=== PATIENT | male | born 1960 | race Hispanic/Latino ===

== ENCOUNTER 2016-09-26 11:50 | Inpatient (IN) | payer OTHER ==
--- NOTE | 2016-09-26 12:18 | ED PDOC ---
HPI: Hypertension/Hypotension Time Seen by Provider: 09/26/16 12:05 Chief Complaint (Nursing): Palpitations History Per: Patient History/Exam Limitations: no limitations Onset/Duration Of Symptoms: Gradual (last night), Worse Since (this am) Current Symptoms Are (Timing): Still Present Associated Symptoms: denies: Chest Pain, Dyspnea, Dizziness, Blurred Vision, Focal Weakness, Headache Quality Of Symptoms: Rapid Heart Rate, Irregular Heart Rate Severity: Moderate Exacerbating Factor(s): Pos: None Additional History Per: Patient Additional Complaint(s): pt states he was watching TV when he felt palpitations. no c/o chest pain or sob. h/o of dialysis. nothing makes it better or worse Past Medical History Reviewed: Historical Data, Nursing Documentation, Vital Signs Vital Signs: Last Vital Signs Temp Pulse Resp BP Pulse Ox 98 09/26/16 12:10 - Medical History PMH: HTN - Family History Family History: States: Unknown Family Hx - Living Arrangements Living Arrangements: With Family - Social History Current smoker - smoking cessation education provided: No Alcohol: None Drugs: Denies - Home Medications Home Medications: Ambulatory Orders Medication Instructions Recorded Esomeprazole Magnesium [Nexium] 20 mg PO DAILY 09/26/16 Metoprolol Succinate 50 mg PO DAILY 09/26/16 - Allergies Allergies/Adverse Reactions: Allergies Allergy/AdvReac Type Severity Reaction Status Date / Time No Known Allergies Allergy Verified 09/26/16 12:09 Review of Systems ROS Statement: Except As Marked, All Systems Reviewed And Found Negative Constitutional: Negative for: Fever, Chills Cardiovascular: Positive for: Palpitations. Negative for: Chest Pain, Edema, Light Headedness Respiratory: Negative for: Cough, Shortness of Breath Gastrointestinal: Negative for: Nausea, Vomiting, Abdominal Pain Neurological: Negative for: Weakness, Numbness, Altered Mental Status, Headache Physical Exam - Reviewed Nursing Documentation Reviewed: Yes Vital Signs Reviewed: Yes - Physical Exam Appears: Positive for: Well, In Acute Distress (mild) Eye Exam: Positive for: Normal appearance, EOMI, PERRL. Negative for: Periorbital swelling, Periorbital tenderness Neck: Positive for: Normal, Painless ROM, Supple. Negative for: Decreased ROM, Limited ROM, Trachea Midline Cardiovascular/Chest: Positive for: Chest Non Tender, Tachycardia, Irregularly Irregular. Negative for: Edema, Gallop, Murmur, Bradycardia, Ectopy, Friction Rub Respiratory: Positive for: Normal Breath Sounds. Negative for: Decreased Breath Sounds, Accessory Muscle Use, Crackles, Rales, Rhonchi, Wheezing Pulses-Radial (L): 2+ Pulses-Radial (R): 2+ Gastrointestinal/Abdominal: Positive for: Normal Exam, Bowel Sounds, Soft. Negative for: Tenderness Back: Positive for: Normal Inspection. Negative for: L CVA Tenderness, R CVA Tenderness Extremity: Positive for: Normal ROM. Negative for: Tenderness, Pedal Edema, Calf Tenderness, Capillary Refill, Deformity, Swelling Neurologic/Psych: Positive for: Alert, set up mechanic II-XII, Oriented, Gait (steady). Negative for: Motor/Sensory Deficits - Laboratory Results Result Diagrams: 09/26/16 12:15 09/26/16 12:15 - ECG ECG: Positive for: Interpreted By Me ECG Rhythm: Positive for: Normal QRS, Normal ST Segment, Atrial Fibrillation. Negative for: ST/T Changes Interpretation Of Abn EKG: afib with rvr, rate 126 O2 Sat by Pulse Oximetry: 98 Pulse Ox Interpretation: Normal - Radiology X-Ray: Interpreted by Ar X-Ray Interpretation: Other (mild pvc nml cardiac and mediasintum silhouette ) - Progress ED Course And Treament: sx improved with cardizem gtt will admit to tele for new onset atrial flutter Re-evaluation Time: 12:49 Condition: Improved Disposition - Clinical Impression Clinical Impression: Atrial flutter with rapid ventricular response - Patient ED Disposition Is Patient to be Admitted: Yes Counseled Patient/Family Regarding: Studies Performed, Diagnosis - Disposition Disposition Time: 15:20 Condition: STABLE - Pt Status Changed To: Hospital Disposition Of: Inpatient - Admit Certification Admit to Inpatient:: After my assessment, the patient will require hospitalization for at least two midnights. This is because of the severity of symptoms shown, intensity of services needed, and/or the medical risk in this patient being treated as an outpatient. - POA Present On Arrival: None
[2016-09-26 12:22] LABS: BASO # 0.1 K/uL (0.0-0.2); BASO % 0.9 % (0.0-2.0); EOS # 0.4 K/uL (0.0-0.7); HEMATOCRIT 48.1 % (35.0-51.0); LYMPH # 3.2 K/uL (1.0-4.3); LYMPH % 31.8 % (20.0-40.0); MEAN CELL VOLUME 88.8 fl (80.0-94.0); MEAN CORPUSCULAR HEMOGLOBIN 29.8 pg (27.0-31.0); MEAN CORPUSCULAR HGB CONC 33.6 g/dL (33.0-37.0); MONO # 1.1 K/uL (0.0-0.8); MONO % 11.3 % (0.0-10.0); NEUT # 5.2 K/uL (1.8-7.0); RED CELL DISTRIBUTION WIDTH 13.2 % (11.5-14.5)
[2016-09-26 12:32] LABS: ALB/GLOB RATIO 1.1 (1.0-2.1); ALKALINE PHOSPHATASE 95 U/L (38-126); ALT/SGPT 27 U/L (21-72); AST/SGOT 31 U/L (17-59); BILIRUBIN,TOTAL 0.5 mg/dl (0.2-1.3); BLOOD UREA NITROGEN 18 mg/dl (9-20); CALCIUM 9.2 mg/dL (8.4-10.2); CARBON DIOXIDE 24 mmol/L (22-30); CHLORIDE 109 mmol/L (98-107); GFR AFRICAN-AMERICAN > 60; GLUCOSE,RANDOM 153 mg/dL (75-110); POTASSIUM 4.4 MMOL/L (3.6-5.0); SODIUM 147 mmol/l (132-148); TOTAL PROTEIN 7.5 G/DL (6.3-8.2)
[2016-09-26 12:37] LABS: RBC URINE < 1 /hpf (0-3); URINE BILIRUBIN NEGATIVE (NEGATIVE); URINE BLOOD NEGATIVE (NEGATIVE); URINE COLOR STRAW (YELLOW); URINE GLUCOSE (UA) NEG (Normal); URINE KETONE NEGATIVE (NEGATIVE); URINE LEUKOCYTE ESTERASE NEG Leu/uL (Negative); URINE PROTEIN 30 mg/dL (NEGATIVE); URINE UROBILINOGEN 0.2-1.0 mg/dL (0.2-1.0); WBC URINE < 1 /hpf (0-5)
--- NOTE | 2016-09-26 15:54 | RAD ---
PROCEDURE: CHEST RADIOGRAPH, 1 VIEW HISTORY: palp COMPARISON: None available. FINDINGS: LUNGS: Clear. PLEURA: No pneumothorax or pleural fluid seen. CARDIOVASCULAR: Pulmonary vascular congestion is noted. OSSEOUS STRUCTURES: No significant abnormalities. VISUALIZED UPPER ABDOMEN: Normal. OTHER FINDINGS: None. IMPRESSION: No infiltrate. Pulmonary vascular congestive changes noted.
[2016-09-26 20:20] VITALS: BMI 39.1
[2016-09-26] MEDS: Enoxaparin 100 mg Syringe SC SCH (21:20)
--- NOTE | 2016-09-27 08:11 | CP.PCM.CON ---
History of Present Illness - History of Present Illness History of Present Illness: I was asked to see patient by Dr. Salinas. Patient is a 56 year old male with PMH HTN, previous renal insufficiency, who presents with palpitations. The patient was at home when he noted the onset of rapid heart rate. The patient felt assocaited dyspnea. Symptoms occurred while at rest. He presented to [facility] and was found to be in atrial fibrillation with rapid ventricular response. The patient was placed on telemetry. Overnight he converted to sinus rhythm. The patient is currently asymptomatic. Review of Systems - Constitutional Constitutional: absent: As Per HPI, Anorexia, Chills, Daytime Sleepiness, Excessive Sweating, Fatigue, Fever, Frequent Falls, Headache, Increased Appetite , Lethargy, Malaise, Night Sweats, Snoring, Sleep Apnea, Weight Gain, Weight Loss, Weakness, Other - EENT Eyes: absent: As Per HPI, Blind Spots, Blurred Vision, Change in Vision, Decreased Night Vision, Diplopia, Discharge, Dry Eye, Exophthalmos, Floaters, Irritation, Itchy Eyes, Loss of Peripheral Vision, Pain, Photophobia, Requires Corrective Lenses, Sees Flashes, Spots in Vision, Tunnel Vision, Other Visual Disturbances, Loss of Vision, Other Ears: absent: As Per HPI, Decreased Hearing, Ear Discharge, Ear Pain, Tinnitus, Abnormal Hearing, Disequilibrium, Dizziness, Other Nose/Mouth/Throat: absent: As Per HPI, Epistaxis, Nasal Congestion, Nasal Discharge, Nasal Obstruction, Nasal Trauma, Nose Pain, Post Nasal Drip, Sinus Pain, Sinus Pressure, Bleeding Gums, Change in Voice, Dental Pain, Dry Mouth, Dysphagia, Halitosis, Hoarsness, Lip Swelling, Mouth Lesions, Mouth Pain, Odynophagia, Sore Throat, Throat Swelling, Tongue Swelling, Facial Pain, Neck Pain, Neck Mass, Other - Cardiovascular Cardiovascular: Dyspnea, Rapid Heart Rate - Respiratory Respiratory: absent: As Per HPI, Cough, Dyspnea, Hemoptysis, Dyspnea on Exertion , Wheezing, Snoring, Stridor, Pain on Inspiration, Chest Congestion, Excessive Mucous Production, Change in Mucous Color, Pain with Coughing, Other - Gastrointestinal Gastrointestinal: absent: As Per HPI, Abdominal Pain, Belching, Bloating, Change in Bowel Habits, Change in Stool Character, Coffee Ground Emesis, Constipation, Cramping, Diarrhea, Dyspepsia, Dysphagia, Early Satiety, Excessive Flatus, Fecal Incontinence, Heartburn, Hematemesis, Hematochezia, Loose Stools, Melena, Nausea, Odynophagia, Temesmus, Vomiting, Other - Genitourinary Genitourinary: absent: As Per HPI, Change in Urinary Stream, Difficulty Urinating, Dysuria, Flank Pain, Hematuria, Pyuria, Nocturia, Urinary Incontinence, Urinary Frequency, Urinary Hesitance, Urinary Urgency, Voiding Freq/Small Amts, Freq UTI, Hx Renal/Bladder Calculi, Hx /Renal Surgery, Bladder Distension, Other - Musculoskeletal Musculoskeletal: absent: As Per HPI, Abnormal Gait, Arthralgias, Atrophy, Back Pain, Deformity, Joint Swelling, Limited Range of Motion, Loss of Height, Muscle Cramps, Muscle Weakness, Myalgias, Neck Pain, Numbness, Radiating Pain into Limb, Stiffness, Tingling, Other - Integumentary Integumentary: absent: As Per HPI, Acne, Alopecia, Bleeding Lesions, Change in Hair, Change in Nails, Change in Pigmentation, Changing Lesions, Dry Skin, Erythema, Furuncle, Hirsutism, Lesions, New Lesions, Non-Healing Lesions, Photosensitivity, Pruritus, Rash, Skin Pain, Skin Ulcer, Sores, Striae, Swelling , Unusual Bruising, Wounds, Jaundice, Other - Neurological Neurological: absent: As Per HPI, Abnormal Gait, Abnormal Hearing, Abnormal Movements, Abnormal Speech, Behavioral Changes, Burning Sensations, Confusion, Convulsions, Disequilibrium, Dizziness, Numbness, Focal Weakness, Frequent Falls , Headaches, Lack of Coordination, Loss of Vision, Memory Loss, Paresthesias, Radicular Pain, Restless Legs, Sensory Deficit, Syncope, Tingling, Tremor, Vertigo, Weakness, Other Visual Disturbances, Other - Psychiatric Psychiatric: absent: As Per HPI, Abnormal Sleep Pattern, Anhedonia, Anxiety, Auditory Hallucinations, Behavioral Changes, Change in Appetite, Change in Libido, Confusion, Depression, Difficulty Concentrating, Hallucinations, Homicidal Ideation, Hopelessness, Irritability, Memory Loss, Mood Swings, Panic Attacks, Paranoia, Suicidal Ideation, Visual Hallucinations, Tactile Hallucinations, Other - Endocrine Endocrine: absent: As Per HPI, Change in Body Appearance, Change in Libido, Cold Intolorance, Deepening of Voice, Excessive Sweating, Fatigue, Flushing, Heat Intolorance, Increase in Ring/Shoe/Hat Size, Palpitations, Polydipsia, Polyphagia, Polyuria, Other - Hematologic/Lymphatic Hematologic: absent: As Per HPI, Easy Bleeding, Easy Bruising, Lymphadenopathy, Other Past Patient History - Past Social History Smoking Status: Never Smoked - CARDIAC Hx Hypertension: Yes - RENAL Hx Chronic Kidney Disease: Yes Hx Dialysis: Yes Hx Kidney Stones: Yes - HEMATOLOGICAL/ONCOLOGICAL Hx AIDS: No Hx Human Immunodeficiency Virus (HIV): No - MUSCULOSKELETAL/RHEUMATOLOGICAL Hx Falls: No - PSYCHIATRIC Hx Substance Use: No - SURGICAL HISTORY Hx Herniorrhaphy: Yes Other/Comment: Left ankle fracture. Plate to left arm - ANESTHESIA Hx Anesthesia: Yes Hx Anesthesia Reactions: No Has any member of the family had a problem w/ anesthesia?: No Meds Allergies/Adverse Reactions: Allergies Allergy/AdvReac Type Severity Reaction Status Date / Time No Known Allergies Allergy Verified 09/26/16 12:09 - Medications Medications: Current Medications Enoxaparin Sodium (Lovenox) 100 mg SC Q12 CHIKA PRN Reason: Protocol Last Admin: 09/26/16 21:20 Dose: 100 mg Diltiazem HCl 125 mg/ Sodium (Chloride) 125 mls @ 5 mls/hr IV .Q24H ONE; 5 MG/ HR PRN Reason: Protocol Stop: 09/27/16 12:10 Last Titration: 09/26/16 15:31 Dose: 2.5 mg/hr Metoprolol Succinate (Toprol Xl) 50 mg PO DAILY [facility] Pantoprazole Sodium (Protonix Ec Tab) 20 mg PO DAILY [facility] Physical Exam - Constitutional Appears: Non-toxic - Head Exam Head Exam: NORMAL INSPECTION - Eye Exam Eye Exam: Normal appearance - ENT Exam ENT Exam: Mucous Membranes Moist - Neck Exam Neck exam: Positive for: Full Rom - Respiratory Exam Respiratory Exam: Decreased Breath Sounds - Cardiovascular Exam Cardiovascular Exam: Irregular Rhythm - GI/Abdominal Exam GI & Abdominal Exam: Normal Bowel Sounds - Rectal Exam Rectal Exam: Deferred - Extremities Exam Extremities exam: Negative for: pedal edema - Back Exam Back exam: NORMAL INSPECTION - Neurological Exam Neurological exam: Alert, Oriented x3 - Psychiatric Exam Psychiatric exam: Normal Affect - Skin Skin Exam: Normal Color Results - Vital Signs Recent Vital Signs: Last Vital Signs Temp 98.1 F 09/27/16 05:32 Pulse 68 09/27/16 05:32 Resp 19 09/27/16 05:32 BP 135/82 09/27/16 05:32 Pulse Ox 96 09/27/16 05:32 - Labs Result Diagrams: 09/26/16 12:15 09/26/16 12:15 - EKG Data EKG Interpreted by: Myself Assessment & Plan (1) SVT (supraventricular tachycardia) Assessment and Plan: appearance of SVT vs. atypical a flutter. recommend echocardiogram to assess LV function. schedule stress test Status: Acute (2) HTN (hypertension) Assessment and Plan: blood pressure control Status: Acute
--- NOTE | 2016-09-27 08:55 | CARD ---
APPROVED REPORT EKG Measurement Heart [id number] P-90 [id number] <Conclusion> Probable atrial flutter with variable AV block T wave abnormality, consider inferior ischemia Abnormal ECG
--- NOTE | 2016-09-27 11:34 | US ---
Bilateral lower extremity venous Doppler dated 09/27/2016. History: Atrial fibrillation. Rule out DVT. Duplex interrogation of the deep veins of the right and low lower extremities performed in standard fashion. Findings: The visualized deep veins of the right and left lower extremities exhibit normal flow, compressibility augmentation without evidence of DVT. Impression: No evidence of DVT seen within the visualized deep veins of the right or left lower extremities.
[2016-09-27] MEDS: Metoprolol Succinate 50 mg XL Tab PO SCH (12:49)
[2016-09-27] MEDS: Pantoprazole 20 mg EC Tab PO SCH (12:50)
[2016-09-27] MEDS: Enoxaparin 100 mg Syringe SC SCH ×2 (12:50→22:08)
--- NOTE | 2016-09-27 16:11 | CARD ---
APPROVED REPORT EXAM: Two-dimensional and M-mode echocardiogram with Doppler and color Doppler. Other Information Quality : GoodRhythm : NSR INDICATION Atrial Fibrillation 2D DIMENSIONS IVSd1.64 (0.7-1.1cm)LVDd4.62 (3.9-5.9cm) LVOT Diameter1.90 (1.8-2.4cm)PWd1.07 (0.7-1.1cm) IVSs1.75 (0.8-1.2cm)LVDs3.01 (2.5-4.0cm) FS (%) 34.9 %PWs1.52 (0.8-1.2cm) LVEF (%)55.0 (>50%) M-Mode DIMENSIONS Left Atrium (MM)4.81 (2.5-4.0cm)IVSd1.91 (0.7-1.1cm) Aortic Root2.97 (2.2-3.7cm)LVDd4.44 (4.0-5.6cm) Aortic Cusp Exc.1.97 (1.5-2.0cm)PWd1.56 (0.7-1.1cm) IVSs2.06 cmFS (%) 38 % LVDs2.75 (2.0-3.8cm)PWs1.97 cm Mitral Valve MV E Ldsotamh20.5cm/sMV DECEL [id number] A Vjxpqpum44.0cm/s MV JCM21agZ/A ratio1.0MVA (PHT)3.90cm2 TDI Lateral E' Peak V10.84cm/sMedial E' Peak V6.44cm/sE/Lateral E'6.1 E/Medial E'10.3 Pulmonary Valve PV Peak Jklaxsba571.1cm/s LEFT VENTRICLE The left ventricle is normal size. There is moderate to severe concentric left ventricular hypertrophy. The left ventricular function is normal. The left ventricular ejection fraction is within the normal range. There is normal LV segmental wall motion. Transmitral Doppler flow pattern is Grade I-abnormal relaxation pattern. RIGHT VENTRICLE The right ventricle is normal size. There is normal right ventricular wall thickness. The right ventricular systolic function is normal. ATRIA The left atrium is mildly dilated. There is a thrombus suspected in the left atrium. The right atrium size is normal. AORTIC VALVE The aortic valve is not well visualized. There is trace to mild aortic regurgitation. There is no aortic valvular stenosis. MITRAL VALVE The mitral valve is mildly thickened. There is no mitral valve stenosis. There is no mitral valve regurgitation noted. TRICUSPID VALVE The tricuspid valve is normal in structure and function. There is no tricuspid valve regurgitation noted. PULMONIC VALVE The pulmonary valve is normal in structure and function. There is no pulmonic valvular regurgitation. GREAT VESSELS The aortic root is normal in size. The IVC is normal in size and collapses >50% with inspiration. PERICARDIAL EFFUSION There is a trace loculated anterior pericardial effusion. <Conclusion> The left ventricle is normal size. There is moderate to severe concentric left ventricular hypertrophy. The left ventricular function is normal. The left ventricular ejection fraction is within the normal range. There is normal LV segmental wall motion. Transmitral Doppler flow pattern is Grade I-abnormal relaxation pattern. The left atrium is mildly dilated. A thrombus suspected in the left atrium. There is trace to mild aortic regurgitation.
--- NOTE | 2016-09-27 17:40 | CARD ---
APPROVED REPORT Protocol: ANA Test Type: Treadmill Stress Test Attending Physician: Dr. García Referring Physician: Dr. Snyder Test Indications: Palpitiations Medications: Esomeprazole 20mg, Metoprolol 50mg Medical History: Hypertension, Afib, Renal Insufficiiency, Right Knee pain. Target HR: 164 bpm Resting ECG: normal Resting Heart Rate: 75 bpm Resting Blood Pressure: 130/90mmHg submaximum (85%): 139 bpm TEST SUMMARY [id number]/90.0. [id number]/90.0. PRETESTHYPERV.00:[id number]/90.0. PRETESTWARM-UP25:[id number]/90.0. EXERCISESTAGE 103:[id number]/90.0. EXERCISESTAGE 203:[id number]/90.0. EXERCISESTAGE 300:[id number]/90.0. [id number]:[id number]/80.0. POST EXERCISE Reason for Termination: right knee pain Target HR: NoMax HR: 125 bpm76% of Maximum Predicted HR: 164 bpm Exercise duration: 3 Stage06:39 min:secExercise capacity: 8.0METs Max Blood Pressure: 150/90mmHg Blood Pressure response to exercise: normal resting BP - appropriate response Heart Rate response to exercise: appropriate Chest Pain: NononeAngina index: 0 Arrhythmia: Nonone ST Change: NononeDeviation: 0 mm INTERPRETATION Stress EKG Conclusion: The patient is a 56 year old male admitted to [facility] on 09/26/16 for palpitations with supraventricular tachycardia. He is now in sinus rhythm and referred for a stress test. He also has a history of hypertension, renal insuffiency and GERDS. He also has a problem with his right knee. The resting EKG on the morning of the stress test showed sinus rhythm. His medicines include metoprolol and nexium. Using a standard Ana protocol, the patient exercised for 6 minutes and 39 secods(completing Stage 2) at which time the patient insisted on stopping due to right knee pain. He did not have any chest pain. The resting heart rate was 74 beats per minute and increased to 125 beats per minute which was only 76% of the MPHR. The resting blood pressure was 130/90 and increased to 150/90 with exercise. The patient reached a workload of 8.0 mets. The rhythm was sinus and there weren't any significant ST segment depressions with exercise. Impression: Normal but incomplete exercise stress test which had to be stopped at 76% of the MPHR due to severe right knee pain. The test is inconclusive as he did not reach 85% of the MPHR. He did not have any chest pain or signiticant EKG changes at this work level. He had a normal blood pressure response to exercise. He remained in sinus rhythm during the entire 6 minute stress test. A pharmacological stress test is recommended for further evaluation as he could not complete the stress test.
[2016-09-28] VITALS: O2SAT 97
[2016-09-28] MEDS ORDERED: Enoxaparin 100 mg Syringe SC SCH (01:00)
[2016-09-28 05:07] VITALS: RESP 18
--- NOTE | 2016-09-28 07:29 | CP.PCM.DIS ---
<TejaNina - Last Filed: 09/28/16 09:57> Provider - Provider Date of Admission: 09/26/16 13:20 Attending physician: Epifanio Salinas MD Time Spent in preparation of Discharge (in minutes): 45 Diagnosis - Discharge Diagnosis (1) Atrial flutter with rapid ventricular response Status: Acute Comment: Rate-controlled, Eliquis 5mg BID, Statin, Lopressor, f/u Dr Snyder (2) HTN (hypertension) Status: Acute Comment: Chronic controlled, c/w home medication (3) Left atrial thrombus Status: Acute Comment: Eliquis 5mg BID, f/u Dr Snyder Hospital Course - Lab Results Lab Results: Most Recent Lab Values WBC 10.0 K/uL (4.8-10.8) 09/26/16 12:15 RBC 5.42 Mil/uL (4.40-5.90) 09/26/16 12:15 Hgb 16.2 g/dL (12.0-18.0) 09/26/16 12:15 Hct 48.1 % (35.0-51.0) 09/26/16 12:15 MCV 88.8 fl (80.0-94.0) 09/26/16 12:15 MCH 29.8 pg (27.0-31.0) 09/26/16 12:15 MCHC 33.6 g/dL (33.0-37.0) 09/26/16 12:15 RDW 13.2 % (11.5-14.5) 09/26/16 12:15 Plt Count 247 K/uL (130-400) 09/26/16 12:15 MPV 8.0 fl (7.2-11.7) 09/26/16 12:15 Neut % (Auto) 52.0 % (50.0-75.0) 09/26/16 12:15 Lymph % (Auto) 31.8 % (20.0-40.0) 09/26/16 12:15 Juab % (Auto) 11.3 % (0.0-10.0) H 09/26/16 12:15 Eos % (Auto) 4.0 % (0.0-4.0) 09/26/16 12:15 Baso % (Auto) 0.9 % (0.0-2.0) 09/26/16 12:15 Neut # 5.2 K/uL (1.8-7.0) 09/26/16 12:15 Lymph # 3.2 K/uL (1.0-4.3) 09/26/16 12:15 Juab # 1.1 K/uL (0.0-0.8) H 09/26/16 12:15 Eos # 0.4 K/uL (0.0-0.7) 09/26/16 12:15 Baso # 0.1 K/uL (0.0-0.2) 09/26/16 12:15 PT 10.6 SECONDS (9.6-11.2) 09/26/16 12:15 INR 1.02 (0.92-1.08) 09/26/16 12:15 APTT 31.0 SECONDS (23.3-32.5) 09/26/16 12:15 Sodium 147 mmol/l (132-148) 09/26/16 12:15 Potassium 4.4 MMOL/L (3.6-5.0) 09/26/16 12:15 Chloride 109 mmol/L (98-107) H 09/26/16 12:15 Carbon Dioxide 24 mmol/L (22-30) 09/26/16 12:15 Anion Gap 18 (10-20) 09/26/16 12:15 BUN 18 mg/dl (9-20) 09/26/16 12:15 Creatinine 1.2 mg/dL (0.8-1.5) 09/26/16 12:15 Est GFR ( Amer) > 60 09/26/16 12:15 Est GFR (Non-Af Amer) > 60 09/26/16 12:15 Random Glucose 153 mg/dL (75-110) H 09/26/16 12:15 Calcium 9.2 mg/dL (8.4-10.2) 09/26/16 12:15 Magnesium 2.0 MG/DL (1.6-2.3) 09/26/16 12:15 Total Bilirubin 0.5 mg/dl (0.2-1.3) 09/26/16 12:15 AST 31 U/L (17-59) 09/26/16 12:15 ALT 27 U/L (21-72) 09/26/16 12:15 Alkaline Phosphatase 95 U/L (38-126) 09/26/16 12:15 Troponin I < 0.0120 ng/mL (0.00-0.120) 09/26/16 12:15 NT-Pro-B Natriuret Pep 86.5 pg/ml (0-900) 09/26/16 12:15 Total Protein 7.5 G/DL (6.3-8.2) 09/26/16 12:15 Albumin 4.0 g/dL (3.5-5.0) 09/26/16 12:15 Globulin 3.5 gm/dL (2.2-3.9) 09/26/16 12:15 Albumin/Globulin Ratio 1.1 (1.0-2.1) 09/26/16 12:15 Urine Color Straw (YELLOW) 09/26/16 12:25 Urine Clarity Clear (Clear) 09/26/16 12:25 Urine pH 7.0 (5.0-8.0) 09/26/16 12:25 Ur Specific [place] 1.010 (1.003-1.030) 09/26/16 12:25 Urine Protein 30 mg/dL (NEGATIVE) 09/26/16 12:25 Urine Glucose (UA) Neg mg/dL (Normal) 09/26/16 12:25 Urine Ketones Negative mg/dL (NEGATIVE) 09/26/16 12:25 Urine Blood Negative (NEGATIVE) 09/26/16 12:25 Urine Nitrate Negative (NEGATIVE) 09/26/16 12:25 Urine Bilirubin Negative (NEGATIVE) 09/26/16 12:25 Urine Urobilinogen 0.2-1.0 mg/dL (0.2-1.0) 09/26/16 12:25 Ur Leukocyte Esterase Neg Cornelius/uL (Negative) 09/26/16 12:25 Urine RBC (Auto) < 1 /hpf (0-3) 09/26/16 12:25 Urine Microscopic WBC < 1 /hpf (0-5) 09/26/16 12:25 - Hospital Course Hospital Course: 56M admitted for acute onset atrial flutter, now rate-controlled. Dr Snyder ( Interventional Cardiology) consulted on the case. Echocardiogram read as nml LV function, grade-I abnml relaxation pattern and LVEF wnl, suspected LA thrombus. Stress test was nml but incomplete. Patient started on anticoagulation, statin and will folllow up with Dr Salinas and Dr Snyder outpatient. He is doing well and stable for discharge to home with follow up as instructed. Discharge Exam - Head Exam Head Exam: ATRAUMATIC, NORMAL INSPECTION - Eye Exam Eye Exam: EOMI, Normal appearance - ENT Exam ENT Exam: Mucous Membranes Moist, Normal Exam - Neck Exam Neck exam: Full Rom, Normal Inspection - Respiratory Exam Respiratory Exam: Clear to PA & Lateral, NORMAL BREATHING PATTERN. absent: Rales, Wheezes - Cardiovascular Exam Cardiovascular Exam: Irregular Rhythm. absent: JVD, Systolic Murmur - GI/Abdominal Exam GI & Abdominal Exam: Normal Bowel Sounds, Soft. absent: Tenderness - Extremities Exam Extremities exam: full ROM, normal capillary refill, pedal pulses present - Neurological Exam Neurological exam: Alert, Oriented x3 - Psychiatric Exam Psychiatric exam: Normal Affect, Normal Mood - Skin Skin Exam: Dry, Normal Color, Warm Discharge Plan - Discharge Medications Prescriptions: Apixaban [Eliquis] 5 mg PO BID #60 tab Atorvastatin [Lipitor] 20 mg PO DAILY #30 tab Metoprolol Succinate 50 mg PO DAILY #30 tab.er.24h Pantoprazole [Protonix EC Tab] 20 mg PO DAILY #30 ect - Follow Up Plan Condition: STABLE Disposition: HOME/ ROUTINE Patient education suggested?: Yes Instructions: Atrial Flutter (DC), Hypertension (DC), Hypertension (GEN) Additional Instructions: Activity as tolerated, heart healthy low fat, low cholesterol diet. Follow-up w / Dr eBttie Fagan to call for appt. Referrals: Epifanio Salinas MD [Staff Provider] - Jese Snyder MD [Staff Provider] - <Epifanio Salinas - Last Filed: 10/08/16 15:51> Provider - Provider Date of Admission: 09/26/16 13:20 Attending physician: Epifanio Salinas MD Hospital Course - Lab Results Lab Results: Micro Results 09/27/16 08:00 Naris MRSA Culture (Admit) - Final MRSA NOT DETECTED Most Recent Lab Values WBC 10.0 K/uL (4.8-10.8) 09/26/16 12:15 RBC 5.42 Mil/uL (4.40-5.90) 09/26/16 12:15 Hgb 16.2 g/dL (12.0-18.0) 09/26/16 12:15 Hct 48.1 % (35.0-51.0) 09/26/16 12:15 MCV 88.8 fl (80.0-94.0) 09/26/16 12:15 MCH 29.8 pg (27.0-31.0) 09/26/16 12:15 MCHC 33.6 g/dL (33.0-37.0) 09/26/16 12:15 RDW 13.2 % (11.5-14.5) 09/26/16 12:15 Plt Count 247 K/uL (130-400) 09/26/16 12:15 MPV 8.0 fl (7.2-11.7) 09/26/16 12:15 Neut % (Auto) 52.0 % (50.0-75.0) 09/26/16 12:15 Lymph % (Auto) 31.8 % (20.0-40.0) 09/26/16 12:15 Ju[place] % (Auto) 11.3 % (0.0-10.0) H 09/26/16 12:15 Eos % (Auto) 4.0 % (0.0-4.0) 09/26/16 12:15 Baso % (Auto) 0.9 % (0.0-2.0) 09/26/16 12:15 Neut # 5.2 K/uL (1.8-7.0) 09/26/16 12:15 Lymph # 3.2 K/uL (1.0-4.3) 09/26/16 12:15 [place] # 1.1 K/uL (0.0-0.8) H 09/26/16 12:15 Eos # 0.4 K/uL (0.0-0.7) 09/26/16 12:15 Baso # 0.1 K/uL (0.0-0.2) 09/26/16 12:15 PT 10.6 SECONDS (9.6-11.2) 09/26/16 12:15 INR 1.02 (0.92-1.08) 09/26/16 12:15 APTT 31.0 SECONDS (23.3-32.5) 09/26/16 12:15 Sodium 147 mmol/l (132-148) 09/26/16 12:15 Potassium 4.4 MMOL/L (3.6-5.0) 09/26/16 12:15 Chloride 109 mmol/L (98-107) H 09/26/16 12:15 Carbon Dioxide 24 mmol/L (22-30) 09/26/16 12:15 Anion Gap 18 (10-20) 09/26/16 12:15 BUN 18 mg/dl (9-20) 09/26/16 12:15 Creatinine 1.2 mg/dL (0.8-1.5) 09/26/16 12:15 Est GFR ( Amer) > 60 09/26/16 12:15 Est GFR (Non-Af Amer) > 60 09/26/16 12:15 Random Glucose 153 mg/dL (75-110) H 09/26/16 12:15 Hemoglobin A1c 5.9 % (4.2-6.5) 09/27/16 07:41 Calcium 9.2 mg/dL (8.4-10.2) 09/26/16 12:15 Magnesium 2.0 MG/DL (1.6-2.3) 09/26/16 12:15 Total Bilirubin 0.5 mg/dl (0.2-1.3) 09/26/16 12:15 AST 31 U/L (17-59) 09/26/16 12:15 ALT 27 U/L (21-72) 09/26/16 12:15 Alkaline Phosphatase 95 U/L (38-126) 09/26/16 12:15 Troponin I < 0.0120 ng/mL (0.00-0.120) 09/26/16 12:15 NT-Pro-B Natriuret Pep 86.5 pg/ml (0-900) 09/26/16 12:15 Total Protein 7.5 G/DL (6.3-8.2) 09/26/16 12:15 Albumin 4.0 g/dL (3.5-5.0) 09/26/16 12:15 Globulin 3.5 gm/dL (2.2-3.9) 09/26/16 12:15 Albumin/Globulin Ratio 1.1 (1.0-2.1) 09/26/16 12:15 Urine Color Straw (YELLOW) 09/26/16 12:25 Urine Clarity Clear (Clear) 09/26/16 12:25 Urine pH 7.0 (5.0-8.0) 09/26/16 12:25 Ur Specific [place] 1.010 (1.003-1.030) 09/26/16 12:25 Urine Protein 30 mg/dL (NEGATIVE) 09/26/16 12:25 Urine Glucose (UA) Neg mg/dL (Normal) 09/26/16 12:25 Urine Ketones Negative mg/dL (NEGATIVE) 09/26/16 12:25 Urine Blood Negative (NEGATIVE) 09/26/16 12:25 Urine Nitrate Negative (NEGATIVE) 09/26/16 12:25 Urine Bilirubin Negative (NEGATIVE) 09/26/16 12:25 Urine Urobilinogen 0.2-1.0 mg/dL (0.2-1.0) 09/26/16 12:25 Ur Leukocyte Esterase Neg Cornelius/uL (Negative) 09/26/16 12:25 Urine RBC (Auto) < 1 /hpf (0-3) 09/26/16 12:25 Urine Microscopic WBC < 1 /hpf (0-5) 09/26/16 12:25
[2016-09-28] MEDS: Metoprolol Succinate 50 mg XL Tab PO SCH (09:26)
[2016-09-28] MEDS: Pantoprazole 20 mg EC Tab PO SCH (09:26)
[2016-09-28 09:34] VITALS: BP 129/85; PULSE 68; TEMP 97.9
--- NOTE | 2016-09-28 11:42 | CP.PCM.PN ---
Subjective - Date & Time of Evaluation Date of Evaluation: 09/28/16 Time of Evaluation: 08:30 - Subjective Subjective: patient feesl well. no chest pain or dyspnea. echocardiogram reviewed,likely left atrial thrombus. Objective - Vital Signs/Intake and Output Vital Signs (last 24 hours): Temp Pulse Resp BP Pulse Ox 97.9 F 68 18 129/85 97 09/28/16 09:34 09/28/16 09:34 09/28/16 09:34 09/28/16 09:34 09/28/16 09:34 - Medications Medications: Current Medications Apixaban (Eliquis) 5 mg PO BID [facility] PRN Reason: Protocol Last Admin: 09/28/16 09:25 Dose: 5 mg Atorvastatin Calcium (Lipitor) 20 mg PO DAILY [facility] Last Admin: 09/28/16 10:46 Dose: 20 mg Metoprolol Succinate (Toprol Xl) 50 mg PO DAILY [facility] Last Admin: 09/28/16 09:26 Dose: 50 mg Pantoprazole Sodium (Protonix Ec Tab) 20 mg PO DAILY [facility] Last Admin: 09/28/16 09:26 Dose: 20 mg - Labs Labs: PT 10.6 SECONDS (9.6-11.2) 09/26/16 12:15 INR 1.02 (0.92-1.08) 09/26/16 12:15 APTT 31.0 SECONDS (23.3-32.5) 09/26/16 12:15 - Constitutional Appears: Non-toxic - Head Exam Head Exam: NORMAL INSPECTION - Eye Exam Eye Exam: Normal appearance - ENT Exam ENT Exam: Mucous Membranes Moist - Neck Exam Neck Exam: Full ROM - Respiratory Exam Respiratory Exam: Decreased Breath Sounds - Cardiovascular Exam Cardiovascular Exam: REGULAR RHYTHM - GI/Abdominal Exam GI & Abdominal Exam: Normal Bowel Sounds - Rectal Exam Rectal Exam: Deferred - Extremities Exam Extremities Exam: Full ROM - Back Exam Back Exam: NORMAL INSPECTION - Neurological Exam Neurological Exam: Alert, Oriented x3 - Psychiatric Exam Psychiatric exam: Normal Mood - Skin Skin Exam: Warm Assessment and Plan (1) SVT (supraventricular tachycardia) Assessment & Plan: now resolved. recommend continued anticoagulant therapy. Status: Acute (2) HTN (hypertension) Status: Acute
== END 2016-09-28 12:12 | disposition home or self-care (01) | DRG 138 ==
LOC: H.ER 11:50 → H.ERHOLD 13:20 → H.ICU/CCU 14:28 → H.TEL 09-27 05:30
PROVIDERS: ADMIT Internal Medicine; ATTEND Internal Medicine
DX: I47.1 Supraventricular tachycardia (principal); N18.9 Chronic kidney disease, unspecified; I48.92 Unspecified atrial flutter; I12.9 Hypertensive chronic kidney disease with stage 1 through stage 4 chronic kidney disease, or unspecified chronic kidney disease; I48.91 Unspecified atrial fibrillation; I51.3 Intracardiac thrombosis, not elsewhere classified; Z87.442 Personal history of urinary calculi

== ENCOUNTER 2016-10-22 20:40 | Emergency (ER) | payer OTHER ==
[2016-10-22 20:41] VITALS: BMI 39.1
[2016-10-22 21:21] VITALS: BP 131/72; RESP 18; TEMP 98.5; O2SAT 98
--- NOTE | 2016-10-22 21:48 | ED PDOC ---
HPI: Hypertension/Hypotension Time Seen by Provider: 10/22/16 21:22 Chief Complaint (Nursing): Palpitations History Per: Patient History/Exam Limitations: no limitations Onset/Duration Of Symptoms: Hrs (2) Current Symptoms Are (Timing): Better Associated Symptoms: Dizziness. denies: Chest Pain, Dyspnea, Blurred Vision, Focal Weakness, Headache Quality Of Symptoms: Irregular Heart Rate Severity: Mild Pain Scale Rating Of: 0 Exacerbating Factor(s): Pos: None Additional History Per: Patient, Prior Records Additional Complaint(s): Pt reports palpitations for last 2 hr. Improved now. Intermittent. No chest pain. Reports same complains yesterday which resolved after additional metoprolol tablet. No syncope. Past Medical History Reviewed: Historical Data, Nursing Documentation, Vital Signs Vital Signs: Last Vital Signs Temp 98.5 F 10/22/16 21:17 Pulse 78 10/22/16 21:35 Resp 18 10/22/16 21:17 BP 131/72 10/22/16 21:17 Pulse Ox 98 10/22/16 21:17 - Medical History PMH: HTN, Kidney Stones, Chronic Kidney Disease Denies: HIV - Surgical History Surgical History: No Surg Hx - Family History Family History: States: Unknown Family Hx - Home Medications Home Medications: Ambulatory Orders Medication Instructions Recorded Apixaban [Eliquis] 5 mg PO BID #60 tab 09/28/16 Atorvastatin [Lipitor] 20 mg PO DAILY #30 tab 09/28/16 Metoprolol Succinate 50 mg PO DAILY #30 tab.er.24h 09/28/16 Pantoprazole [Protonix EC Tab] 20 mg PO DAILY #30 ect 09/28/16 - Allergies Allergies/Adverse Reactions: Allergies Allergy/AdvReac Type Severity Reaction Status Date / Time No Known Allergies Allergy Verified 09/26/16 12:09 Review of Systems ROS Statement: Except As Marked, All Systems Reviewed And Found Negative Constitutional: Negative for: Fever Cardiovascular: Positive for: Palpitations, Light Headedness. Negative for: Chest Pain, Orthopnea Respiratory: Negative for: Cough, Shortness of Breath, Hemoptysis Neurological: Negative for: Headache Physical Exam - Reviewed Nursing Documentation Reviewed: Yes Vital Signs Reviewed: Yes - Physical Exam Appears: Positive for: Well, Non-toxic, No Acute Distress Head Exam: Positive for: ATRAUMATIC Skin: Positive for: Warm, Dry Cardiovascular/Chest: Positive for: Regular Rate, Rhythm. Negative for: Edema, Tachycardia Respiratory: Positive for: Normal Breath Sounds. Negative for: Rales, Rhonchi, Wheezing Gastrointestinal/Abdominal: Positive for: Soft. Negative for: Tenderness Neurologic/Psych: Positive for: Alert, Oriented - Laboratory Results Result Diagrams: 10/22/16 21:58 10/22/16 21:58 - ECG ECG: Positive for: Interpreted By Me, Viewed By Me ECG Rhythm: Positive for: Normal QRS, Normal ST Segment, Sinus Rhythm, Premature Ventricular Contraction. Negative for: ST/T Changes Rate: 75 O2 Sat by Pulse Oximetry: 98 - Progress Re-evaluation Time: 23:40 Condition: Re-examined, Improved Medical Decision Making Medical Decision Making: Palpitations Diff include arrythmia ie Afib paroxismal. Asymptomatic now. EKG Monitoring labs reeval EKG with rare PVCs. No further testing needed. Disposition - Clinical Impression Clinical Impression: Palpitations - Patient ED Disposition Is Patient to be Admitted: No Counseled Patient/Family Regarding: Studies Performed, Diagnosis - Disposition Referrals: Cesar Fagan MD [Staff Provider] - Disposition: Routine/Home Disposition Time: 23:40 Condition: GOOD Additional Instructions: Take your medications daily. Return for worsening. Follow up with your PCP in 2- 3 days. Instructions: Palpitations (ED)
[2016-10-22 21:51] VITALS: PULSE 75
[2016-10-22 22:17] LABS: BASO % 0.2 % (0.0-2.0); EOS # 0.2 K/uL (0.0-0.7); EOS % 2.1 % (0.0-4.0); HEMATOCRIT 44.2 % (35.0-51.0); LYMPH # 1.7 K/uL (1.0-4.3); LYMPH % 17.7 % (20.0-40.0); MEAN CELL VOLUME 87.3 fl (80.0-94.0); MEAN CORPUSCULAR HEMOGLOBIN 29.9 pg (27.0-31.0); MEAN CORPUSCULAR HGB CONC 34.2 g/dL (33.0-37.0); MEAN PLATELET VOLUME 7.8 fl (7.2-11.7); MONO # 0.9 K/uL (0.0-0.8); MONO % 9.3 % (0.0-10.0); NEUT # 6.9 K/uL (1.8-7.0); NEUT % 70.7 % (50.0-75.0); NRBC % 0.1 % (0.0-0.0); RED CELL DISTRIBUTION WIDTH 13.1 % (11.5-14.5); WHITE BLOOD COUNT 9.7 K/uL (4.8-10.8)
[2016-10-22 22:36] LABS: BLOOD UREA NITROGEN 21 mg/dl (9-20); CARBON DIOXIDE 24 mmol/L (22-30); CHLORIDE 109 mmol/L (98-107); GLUCOSE,RANDOM 99 mg/dL (75-110); POTASSIUM 4.1 MMOL/L (3.6-5.0); SODIUM 144 mmol/l (132-148)
[2016-10-23 00:09] LABS: GFR AFRICAN-AMERICAN > 60
--- NOTE | 2016-10-23 09:30 | CARD ---
APPROVED REPORT EKG Measurement Heart [id number] <Conclusion> Sinus rhythm with premature supraventricular complexes Possible Left atrial enlargement Borderline ECG
== END 2016-10-22 23:58 | disposition home or self-care (01) ==
LOC: H.ER 20:40
DX: R00.2 Palpitations (principal); R42 Dizziness and giddiness; I12.9 Hypertensive chronic kidney disease with stage 1 through stage 4 chronic kidney disease, or unspecified chronic kidney disease; Z79.01 Long term (current) use of anticoagulants; I49.1 Atrial premature depolarization

== ENCOUNTER 2016-11-24 15:02 | Emergency (ER) | payer OTHER ==
[2016-11-24 15:02] VITALS: BMI 39.1
[2016-11-24 15:13] VITALS: RESP 16; TEMP 97.1; O2SAT 100
[2016-11-24] MEDS ORDERED: Sodium Chloride 0.9% 1,000 ML IV ONE (16:00)
--- NOTE | 2016-11-24 16:09 | ED PDOC ---
HPI: Chest Pain Time Seen by Provider: 11/24/16 15:18 Chief Complaint (Nursing): Palpitations Chief Complaint (Provider): Palpitations History Per: Patient History/Exam Limitations: no limitations Onset/Duration Of Symptoms: Hrs (one) Current Symptoms Are (Timing): Intermittent Episodes Associated Symptoms: Other (lightheadedness). denies: Syncope Additional Complaint(s): Pt. here today for evaluation of palpitations. Pt. states he was at home before arrival the emergency room. Pt. states just finished eating a sandwich when he felt his heart was racing. Pt. states the episode lasted for 15 seconds and resolved spontaneously. Pt. states he then had a second episode of palpitations then decided to walk to the emergency room for evaluation. Pt. states he was able to walk from his home unassisted and without difficulty to the emergency room. Associated symptoms included lightheadedness during the episode of palpitations. Pt. denies any chest pain, dyspnea, nausea, vomiting, syncope, trauma, falls, injury, or abdominal pain. Pt. does admit that he found out his mother has "cancer" yesterday and that he is planning to go to [facility]. Pt. states he has a lot of things going through his mind. Pt. denies taking any caffeine, drugs, or alcohol. Pt. reports used cocaine 6 years ago. Past Medical History Vital Signs: Last Vital Signs Temp 97.1 F L 11/24/16 15:11 Pulse 89 11/24/16 16:22 Resp 16 11/24/16 15:11 BP 137/84 11/24/16 16:22 Pulse Ox 100 11/24/16 18:40 - Medical History PMH: HTN, Kidney Stones, Chronic Kidney Disease Denies: HIV - Family History Family History: States: Unknown Family Hx - Living Arrangements Living Arrangements: Alone - Social History Current smoker - smoking cessation education provided: No Alcohol: None Drugs: Denies - Home Medications Home Medications: Ambulatory Orders Medication Instructions Recorded Apixaban [Eliquis] 5 mg PO BID #60 tab 09/28/16 Atorvastatin [Lipitor] 20 mg PO DAILY #30 tab 09/28/16 Metoprolol Succinate 50 mg PO DAILY #30 tab.er.24h 09/28/16 Pantoprazole [Protonix EC Tab] 20 mg PO DAILY #30 ect 04/11/17 - Allergies Allergies/Adverse Reactions: Allergies Allergy/AdvReac Type Severity Reaction Status Date / Time No Known Allergies Allergy Verified 11/24/16 15:11 GARRISON Risk Score for UA/NSTEMI - GARRISON Risk Score Age > 64: NO 3 or more CAD Risk Factors: NO Known CAD (Stenosis greater than 50%): NO Aspirin use in past 7 days: NO Severe Angina: NO EKG ST changes greater than 0.5mm: NO GARRISON Score: 0 Risk %: 5% Curb-65 Severity Score - CURB-65 Severity Score Confusion: No Respiratory Rate greater than/equal to 30: No Systolic BP <90 or Diastolic BP less than/equal 60mmHg: No Age >64: No Curb-65 Score: 0 Percentage 30-day mortality: 0.6% Wells Criteria for PE - Wells Criteria for Pulmonary Embolism Clinical Signs and Symptoms of DVT: No P.E is #1 Diagnosis, or Equally Likely: No Heart Rate >100: No Immobilization at least 3 days;Surgery previous 4 weeks: No Previous, objectively diagnosed PE or DVT: No Hemoptysis: No Malignancy w/treatment within 6 months, or palliative: No Total Score: 0 Review of Systems Cardiovascular: Positive for: Palpitations (See HPI) Physical Exam - Reviewed Vital Signs Reviewed: Yes - Physical Exam Appears: Positive for: Non-toxic, No Acute Distress Head Exam: Positive for: ATRAUMATIC, NORMOCEPHALIC Neck: Positive for: Painless ROM, Supple Cardiovascular/Chest: Positive for: Regular Rate, Rhythm. Negative for: Murmur Respiratory: Positive for: Normal Breath Sounds. Negative for: Wheezing, Respiratory Distress Gastrointestinal/Abdominal: Positive for: Soft. Negative for: Tenderness Extremity: Negative for: Pedal Edema, Calf Tenderness Neurologic/Psych: Positive for: Alert, Oriented. Negative for: Aphasia - Laboratory Results Result Diagrams: 11/24/16 16:00 11/24/16 16:30 - ECG ECG: Positive for: Viewed By Me (discussed with Dr. Bhakta ) ECG Rhythm: Positive for: Sinus Tachycardia Interpretation Of Abn EKG: Initial EKG showed sinus tachycardia subsequent repeat EKG showed Normal Sinus Rhythm without any acute changes. O2 Sat by Pulse Oximetry: 100 Medical Decision Making Medical Decision Makin y.o. male patient with PMHx of A-fib on eliquis, HTN on metoprolol, and Hyperlipidemia on Atorvastatin who came in complaining of palpitation. Initial EKG showed sinus tachycardia but during the course of E.R. stay patient reports felt better and all symptoms resolved spontaneously. Repeat EKG showed normal sinus rhythm without tachycardia and review of labs were within normal limits with a negative troponin. Pt. stable for discharge to home to follow up with PMD. Disposition - Clinical Impression Clinical Impression: Palpitations - Disposition Referrals: [facility] [Outside] - 11/25/16 Disposition Time: 17:00 Condition: STABLE Additional Instructions: Return if not better in 3 days. Instructions: Palpitations (ED) Forms: [facility] (Frisian)
[2016-11-24 16:27] VITALS: BP 137/84; PULSE 89
[2016-11-24 16:48] LABS: HEMATOCRIT 45.9 % (35.0-51.0); MEAN CELL VOLUME 87.1 fl (80.0-94.0); MEAN CORPUSCULAR HEMOGLOBIN 29.9 pg (27.0-31.0); MEAN CORPUSCULAR HGB CONC 34.3 g/dL (33.0-37.0); RED CELL DISTRIBUTION WIDTH 13.1 % (11.5-14.5); WHITE BLOOD COUNT 8.8 K/uL (4.8-10.8)
[2016-11-24 17:15] LABS: ALB/GLOB RATIO 1.4 (1.0-2.1); ALKALINE PHOSPHATASE 95 U/L (38-126); ALT/SGPT 43 U/L (21-72); AST/SGOT 34 U/L (17-59); BILIRUBIN,TOTAL 0.6 mg/dl (0.2-1.3); BLOOD UREA NITROGEN 21 mg/dl (9-20); CALCIUM 9.1 mg/dL (8.4-10.2); CARBON DIOXIDE 23 mmol/L (22-30); CHLORIDE 109 mmol/L (98-107); GFR AFRICAN-AMERICAN > 60; GLUCOSE,RANDOM 111 mg/dL (75-110); POTASSIUM 3.9 MMOL/L (3.6-5.0); SODIUM 143 mmol/l (132-148); TOTAL PROTEIN 7.4 G/DL (6.3-8.2)
--- NOTE | 2016-11-24 17:33 | ED PDOC ---
- Laboratory Results Result Diagrams: 11/24/16 16:00 11/24/16 16:30 - ECG O2 Sat by Pulse Oximetry: 100 - Progress ED Course And Treament: 1700: Took over care from Dr. Bhakta. VENUS on labs. Here with palpitations that stopped and were brief. Under stress currently. 1731: AAOx3. Pain free. Feels good and no symptoms. Tolerated PO. Fu with pcp. Disposition - Clinical Impression Clinical Impression: Palpitations - POA Present On Arrival: None - Disposition Referrals: [facility] [Outside] - 11/25/16 Disposition: Routine/Home Disposition Time: 17:33 Condition: STABLE Additional Instructions: Return if not better in 3 days. Instructions: Palpitations (ED) Forms: [facility] (Japanese)
--- NOTE | 2016-11-26 07:24 | CARD ---
APPROVED REPORT EKG Measurement Heart [id number] <Conclusion> Sinus tachycardia Inferior infarct, age undetermined Abnormal ECG
--- NOTE | 2016-11-26 15:01 | CARD ---
APPROVED REPORT EKG Measurement Heart [id number] [place] [id number] [id number] <Conclusion> Normal sinus rhythm Possible Left atrial enlargement Borderline ECG
== END 2016-11-24 18:27 | disposition home or self-care (01) ==
LOC: H.ER 15:02
DX: R00.2 Palpitations (principal)

== ENCOUNTER 2016-12-22 06:07 | Emergency (ER) | payer OTHER ==
[2016-12-22 06:29] VITALS: BMI 40.4
[2016-12-22 06:33] VITALS: TEMP 98.2
--- NOTE | 2016-12-22 07:40 | ED PDOC ---
HPI: Chest Pain Time Seen by Provider: 12/22/16 07:03 Chief Complaint (Nursing): Palpitations History Per: Patient History/Exam Limitations: no limitations Onset/Duration Of Symptoms: Intermittent Episodes Current Symptoms Are (Timing): Intermittent Episodes Severity: Moderate Additional Complaint(s): CC: Palpitations HPI: The patient is a 56 y/o man w/ PMH of HTN, afib, and HLD presents to ED for palpitations. Patient reports episode started at 05:30 this morning. The patient reports intermittent episodes of PVC and afib. The patient is on eliquis for afib which was diagnosed in 09/2016. The patient denies chest pain , SOB, n/v/d, headache, dizziness, paresthesia, and abdominal pain.l Allergies: surgical tape PMH: afib, HTN, HLD PSH: left elbow and left ankle surgeries, no Hx of cardiac surgeries Fam: father had afib ( 5 yrs ago), mother has HTN SOC: denies smoking, alcohol, and drugs ROS: negative for 12 points assessed unless otherwise stated in HPI - Risk Factors PE Risk Factors: Neg: Extremity Immobilization/Fx, Decreased Mobilty /Activity, Recent Major Surgery, Recent Hospitalization, Active Cancer, Previous DVT, Previous PE, CHF, Venous Stasis, Recent Major Trauma TAD Risk Factors: Pos: Hypertension Neg: Connective Tissue Disease, Marfan's Syndrome, Nataliya-Danlos Syndrome, Aortic Valve Disease, Tumer's Syndrome, Sudden Onset Of Pain, Migration Of Pain , New Neurologic Symptoms Past Medical History Vital Signs: Last Vital Signs Temp 98.2 F 12/22/16 06:29 Pulse 80 12/22/16 09:30 Resp 18 12/22/16 09:30 BP 149/86 12/22/16 09:30 Pulse Ox 100 12/22/16 09:30 - Medical History PMH: Atrial Fibrillation, HTN, Kidney Stones, Chronic Kidney Disease Denies: HIV - Family History Family History: States: Unknown Family Hx - Home Medications Home Medications: Ambulatory Orders Medication Instructions Recorded Apixaban [Eliquis] 5 mg PO BID #60 tab 09/28/16 Atorvastatin [Lipitor] 20 mg PO DAILY #30 tab 09/28/16 Metoprolol Succinate 50 mg PO DAILY #30 tab.er.24h 09/28/16 - Allergies Allergies/Adverse Reactions: Allergies Allergy/AdvReac Type Severity Reaction Status Date / Time surgical tape Allergy RASH Uncoded 12/22/16 06:34 GARRISON Risk Score for UA/NSTEMI - GARRISON Risk Score Age > 64: NO 3 or more CAD Risk Factors: YES Known CAD (Stenosis greater than 50%): NO Aspirin use in past 7 days: NO Severe Angina: NO EKG ST changes greater than 0.5mm: NO Positive Cardiac Marker: NO GARRISON Score: 1 Risk %: 5% Curb-65 Severity Score - CURB-65 Severity Score Confusion: No Bun >19mg/dl (>7mmol/L): No Respiratory Rate greater than/equal to 30: No Systolic BP <90 or Diastolic BP less than/equal 60mmHg: No Age >64: No Curb-65 Score: 0 Percentage 30-day mortality: 0.6% Wells Criteria for PE - Wells Criteria for Pulmonary Embolism Clinical Signs and Symptoms of DVT: No P.E is #1 Diagnosis, or Equally Likely: No Heart Rate >100: No Immobilization at least 3 days;Surgery previous 4 weeks: No Previous, objectively diagnosed PE or DVT: No Hemoptysis: No Malignancy w/treatment within 6 months, or palliative: No Total Score: 0 Review of Systems ROS Statement: Except As Marked, All Systems Reviewed And Found Negative Constitutional: Negative for: Fever Eyes: Negative for: Vision Change Cardiovascular: Positive for: Palpitations. Negative for: Chest Pain, Light Headedness Respiratory: Negative for: Shortness of Breath, SOB with Exertion, Pleuritic Pain Gastrointestinal: Negative for: Nausea, Vomiting, Abdominal Pain, Diarrhea Genitourinary Male: Negative for: Dysuria Neurological: Negative for: Weakness, Numbness, Confusion, Altered Mental Status , Headache Physical Exam - Physical Exam Appears: Positive for: No Acute Distress Head Exam: Positive for: ATRAUMATIC, NORMOCEPHALIC Skin: Positive for: Normal Color, Warm, Dry Eye Exam: Positive for: Normal appearance Neck: Positive for: Painless ROM, Supple Cardiovascular/Chest: Positive for: Other (regular, irreguler). Negative for: Chest Non Tender, Edema, Murmur Respiratory: Positive for: Normal Breath Sounds. Negative for: Accessory Muscle Use, Wheezing, Respiratory Distress Pulses-Carotid (L): 2+ Pulses-Carotid (R): 2+ Pulses-Dorsalis Pedis (L): 2+ Pulses-Dorsalis Pedis (R): 2+ Pulses-Post. Tibialis (L): 2+ Pulses-Post. Tibialis (R): 2+ Pulses-Radial (L): 2+ Pulses-Radial (R): 2+ Gastrointestinal/Abdominal: Positive for: Normal Exam Neurologic/Psych: Positive for: Alert, Oriented - Laboratory Results Result Diagrams: 12/22/16 07:51 12/22/16 07:51 - ECG O2 Sat by Pulse Oximetry: 96 Medical Decision Making Medical Decision Making: The patient is a 56 y/o man w/ PMH of HTN, afib, and HLD presents to ED for palpitations CBC w/ diff: WNL CMP: mild elevated BUN @ 22 troponin: negative urine drug screen: negative CXR: WNL, no acute pulmonary disease process EKG: tachycardia, afib, no ST elevations, no t wave inversions, no widened QT interval, no prolonged segments DC home, follow up w/ Dr Snyder Disposition - Clinical Impression Clinical Impression: Palpitations, Atrial fibrillation - Patient ED Disposition Is Patient to be Admitted: No Discussed With : Leonela Reed Doctor Will See Patient In The: Office Counseled Patient/Family Regarding: Studies Performed, Diagnosis, Need For Followup - Disposition Referrals: Jese Snyder MD [Staff Provider] - Disposition: Routine/Home Disposition Time: 08:55 Condition: STABLE Instructions: Atrial Fibrillation (ED), Atrial Fibrillation (DC), Palpitations (ED) Print Language: LITHUANIAN - POA Present On Arrival: None
[2016-12-22 07:58] LABS: BASO # 0.1 K/uL (0.0-0.2); BASO % 1.1 % (0.0-2.0); EOS # 0.3 K/uL (0.0-0.7); EOS % 3.2 % (0.0-4.0); HEMOGLOBIN 15.5 g/dL (12.0-18.0); LYMPH % 30.3 % (20.0-40.0); MEAN CELL VOLUME 88.9 fl (80.0-94.0); MEAN CORPUSCULAR HEMOGLOBIN 29.7 pg (27.0-31.0); MEAN CORPUSCULAR HGB CONC 33.5 g/dL (33.0-37.0); MEAN PLATELET VOLUME 8.2 fl (7.2-11.7); MONO # 1.1 K/uL (0.0-0.8); MONO % 11.2 % (0.0-10.0); NEUT # 5.4 K/uL (1.8-7.0); NEUT % 54.2 % (50.0-75.0); NRBC % 0.1 % (0.0-0.0); RBC 5.2 Mil/uL (4.40-5.90); RED CELL DISTRIBUTION WIDTH 12.9 % (11.5-14.5)
[2016-12-22 08:10] LABS: ALB/GLOB RATIO 1.3 (1.0-2.1); ALBUMIN 4.4 g/dL (3.5-5.0); ALT/SGPT 42 U/L (21-72); AST/SGOT 30 U/L (17-59); BLOOD UREA NITROGEN 22 mg/dl (9-20); GFR AFRICAN-AMERICAN > 60; GFR NON-AFRICAN AMERICAN 52
[2016-12-22 08:21] LABS: BARBITURATES, UR NEGATIVE (NEGATIVE); BENZODIAZEPINES, UR NEGATIVE (NEGATIVE); OPIATES, UR NEGATIVE (NEGATIVE); PHENCYCLIDINE, UR NEGATIVE (NEGATIVE)
[2016-12-22 09:31] VITALS: BP 149/86; PULSE 80; RESP 18
[2016-12-22 09:50] VITALS: O2SAT 96
--- NOTE | 2016-12-22 10:38 | RAD ---
HISTORY: Palpitations COMPARISON: 09/26/2016 FINDINGS: LUNGS: The lungs are well inflated and clear. PLEURA: No significant pleural effusion identified, no pneumothorax apparent. CARDIOVASCULAR: Normal. OSSEOUS STRUCTURES: No significant abnormalities. VISUALIZED UPPER ABDOMEN: Normal. OTHER FINDINGS: None. IMPRESSION: No acute findings.
== END 2016-12-22 09:31 | disposition home or self-care (01) ==
LOC: H.ER 06:07
DX: I48.91 Unspecified atrial fibrillation (principal); E78.5 Hyperlipidemia, unspecified; I12.9 Hypertensive chronic kidney disease with stage 1 through stage 4 chronic kidney disease, or unspecified chronic kidney disease; Z79.01 Long term (current) use of anticoagulants